=== PATIENT | male | born 1960 | race Hispanic/Latino ===

== ENCOUNTER 2016-05-08 09:19 | Emergency (ER) | payer SELFPAY ==
[2016-05-08] MEDS ORDERED: XANAX PO ONE (11:53)
[2016-05-08 12:35] LABS: Alanine Aminotransferase 20 units/L (7-56); Albumin/Globulin Ratio 1.7 %; Alkaline Phosphatase 63 units/L (35-129); Anion Gap 17 mmol/L; BUN/Creatinine Ratio 23.75; Bilirubin,Total 0.2 mg/dL (0.1-1.2); Blood Urea Nitrogen 19 mg/dL (9-20); Calcium 8.8 mg/dL (8.4-10.2); Carbon Dioxide 24 mmol/L (22-30); Chloride 95.1 mmol/L (98-107); Glucose 114 mg/dL (75-100); Potassium 4.3 mmol/L (3.6-5.0); Sodium 132 mmol/L (137-145); Total Protein 6.4 g/dL (6.3-8.2)
[2016-05-08 12:39] LABS: Basophils % (Auto) 0.5 % (0.0-1.8); Eosinophils % (Auto) 0.6 % (0.0-4.3); Hematocrit 43.9 % (35.5-45.6); Hemoglobin 14.7 gm/dl (11.8-15.2); Mean Corpuscular HGB Conc 34 % (32-34); Mean Corpuscular Hemoglobin 29 pg (28-32); Mean Corpuscular Volume 87 fl (84-94); Platelet Count 204 K/mm3 (140-440); Red Blood Count 5.05 M/mm3 (3.65-5.03); Red Cell Distribution Width 13.2 % (13.2-15.2); White Blood Count 7.3 K/mm3 (4.5-11.0)
[2016-05-08 12:47] LABS: Urine Drugs of Abuse Note Disclamer
[2016-05-08 12:56] LABS: Bilirubin,Urine NEG (Negative); Blood,Urine SM (Negative); Ketones,Urine NEG (Negative); Leukocyte Esterase,Urine NEG (Negative); Mucus,Urine 3+ /HPF; Nitrite,Urine NEG (Negative); Protein,Urine <15 mg/dL mg/dL (Negative); Urobilinogen,Urine < 2.0 mg/dL (<2.0)
--- NOTE | 2016-05-08 13:20 | Emergency Department Report ---
HPI - General Chief Complaint: Anxiety Time Seen by Provider: 05/08/16 11:22 - HPI HPI: This is a 55-year-old male who presents to the emergency department with complaint of anxiety and depression. Patient says he has been diagnosed with generalized anxiety disorder and some depression recently by his primary care doctor as well as confirmed by other physicians he is seen and previous emergency room visits. This may going on for the past 2-3 months but has worsened over the past few days. The patient has been on different antianxiety medications and they have not appear to work. He recently saw his primary care doctor, Dr. Rogers, and was placed on Abilify. However there also told that it may take some time for Abilify to become therapeutic. The patient recently has been eating very little and does not want to do anything but sitting on the couch. He has to be severely coaxed to take a shower. The patient is awake and alert and denies any specific reason for his anxiety or depression. He denies any suicidal or homicidal ideations. He denies any visual or auditory hallucinations. ED Past Medical Hx - Past Medical History Additional medical history: Anxiety Attacks - Surgical History Additional Surgical History: Back Surgery - Social History Smoking Status: Current Every Day Smoker Substance Use Type: None - Medications Home Medications: Home Medications Medication Instructions Recorded Confirmed Last Taken Type ALPRAZolam [Xanax TAB] 0.5 mg PO BID PRN #20 tab 05/08/16 Unknown Rx ARIPiprazole [Abilify TAB] 2.5 mg PO DAILY 05/08/16 05/08/16 Unknown History PARoxetine [Paxil] 10 mg PO DAILY 05/08/16 05/08/16 Unknown History Propranolol [Inderal] 10 mg PO TID 05/08/16 05/08/16 Unknown History ED Review of Systems ROS: Stated complaint: MH EVAL/ANXIETY/DEPRESSION Other details as noted in HPI Comment: All other systems reviewed and negative Constitutional: denies: chills, fever Eyes: denies: eye pain, eye discharge, vision change ENT: denies: ear pain, throat pain Respiratory: denies: cough, shortness of breath, wheezing Cardiovascular: denies: chest pain, palpitations Gastrointestinal: denies: abdominal pain, nausea, diarrhea Genitourinary: denies: urgency, dysuria Musculoskeletal: denies: back pain, joint swelling, arthralgia Skin: denies: rash, lesions Neurological: denies: headache, weakness, paresthesias Psychiatric: anxiety, depression. denies: auditory hallucinations, visual hallucinations, homicidal thoughts, suicidal thoughts Physical Exam - Physical Exam Vital Signs: Vital Signs 05/08/16 05/08/16 05/08/16 09:23 11:35 11:58 Temperature 98.2 F 97.1 F L Pulse Rate 67 67 Respiratory 20 20 16 Rate Blood Pressure 142/88 Blood Pressure 137/83 [Left] O2 Sat by Pulse 97 92 96 Oximetry Physical Exam: GENERAL: The patient is well-developed well-nourished. HEENT: Normocephalic. Atraumatic. Extraocular motions are intact. Patient has moist mucous membranes. Pupils equal reactive to light bilaterally. NECK: Supple. Trachea is midline. CHEST/LUNGS: Clear to auscultation. There is no respiratory distress noted. HEART/CARDIOVASCULAR: Regular. There is no tachycardia. There is no gallop rub or murmur. ABDOMEN: Abdomen is soft, nontender. Patient has normal bowel sounds. There is no abdominal distention. SKIN: There is no rash. There is no edema. There is no diaphoresis. NEURO: The patient is awake, alert, and oriented. The patient is cooperative. The patient has no focal neurologic deficits. The patient has normal speech. MUSCULOSKELETAL: There is no tenderness or deformity. There is no limitation range of motion. There is no evidence of acute injury. PSYCH: Patient does appear anxious but is redirectable and otherwise is calm and cooperative. ED Course Vital Signs 05/08/16 05/08/16 05/08/16 09:23 11:35 11:58 Temperature 98.2 F 97.1 F L Pulse Rate 67 67 Respiratory 20 20 16 Rate Blood Pressure 142/88 Blood Pressure 137/83 [Left] O2 Sat by Pulse 97 92 96 Oximetry ED Medical Decision Making - Lab Data Result diagrams: 05/08/16 12:00 05/08/16 12:00 - Medical Decision Making This is a 55-year-old male who presents to the emergency department with anxiety and depression. Patient has been to emergency departments before and seen crisis therapist before. They have contacted [facility] but they would not take the patient due to a lack of insurance allegedly and the patient says that they have contacted [facility] and it is too expensive since he is self- pay. I checked labs and urine on him to look for other possible etiologies of the patient's symptoms but his labs and unremarkable. I also do not show any signs of dehydration or malnutrition despite the complaint of a lack of appetite and eating/drinking. Patient was given a single dose of Xanax upon reevaluation he is feeling greatly improved. They're looking for some way to combat the anxiety while the Abilify becomes therapeutic. Patient is not homicidal or suicidal and does not have any hallucinations. His partner is bedside and together they feel as if he will be able to be well taken care of and complete his ADLs. He does not appear to be a candidate for a 1013. He'll be discharged with some antianxiety medication and referral for the [facility]. He is been told to return to the emergency department with any worsening of his symptoms or any acute distress. - Differential Diagnosis anxiety, depression, bipolar disorder, schizoaffective Critical Care Time: No Critical care attestation.: If time is entered above; I have spent that time in minutes in the direct care of this critically ill patient, excluding procedure time. ED Disposition Clinical Impression: Anxiety Depressed Qualifiers: Depression Type: unspecified Qualified Code(s): F32.9 - Major depressive disorder, single episode, unspecified Disposition: DISCHARGED TO HOME OR SELFCARE Is pt being admited?: No Does the pt Need Aspirin: No Condition: Stable Instructions: Depression (ED), Anxiety (ED) Additional Instructions: Please follow-up with your primary care doctor in the next few days. I have given you a referral for the [facility] in order to follow-up regarding her anxiety. Return to the emergency department with any worsening of your symptoms or any acute distress. You've been prescribed a medication that is sedating. Therefore this medication cannot be mixed with alcohol, or taken prior to driving, working, or being responsible for children. Prescriptions: ALPRAZolam [Xanax TAB] 0.5 mg PO BID PRN #20 tab PRN Reason: Anxiety Referrals: PRIMARY CARE, [Primary Care Provider] - 3-5 Days [facility] [Outside] - 3-5 Days Time of Disposition: 13:25
[2016-05-08 13:44] VITALS: BP 107/68
== END 2016-05-08 13:44 | disposition home or self-care (01) ==
LOC: ED 09:19
DX: F41.9 Anxiety disorder, unspecified (principal); F32.9 Major depressive disorder, single episode, unspecified; F17.200 Nicotine dependence, unspecified, uncomplicated
CPT/HCPCS: 36415; 80053; 80307; 81001; 84443; 85025; 99283; G0480; 80320